=== PATIENT | female | born 1960 | race Caucasian/White ===

== ENCOUNTER 2017-02-07 15:51 | Emergency (ER) | payer OTHER ==
[~2017-02-07] VITALS: Ht 162.6 cm; Wt 72.3 kg
[~2017-02-07 15:51] MED LIST: ACET-1600 PO; ASPI1TAB2 PO; AZEL23SP NS; CETI-158 PO; CHOL200024 PO; DEXL60CA PO; IBUP200C8 PO; LEVO137T2 PO; SERT50TA5 PO; VALA500T PO
[2017-02-07] MEDS ORDERED: SODIUM CHLORIDE 0.9% 1,000ML IVBOLUS ONE (16:30)
[2017-02-07 16:34] LABS: HEMATOCRIT 44.7 % (34.6-47.8); HEMOGLOBIN 14.9 g/dL (11.7-16.4); WHITE BLOOD COUNT 7.7 x10^3/uL (3.4-10)
[2017-02-07 16:48] LABS: ASPARTATE AMINO TRANSFERASE 28 U/L (15-37); BLOOD UREA NITROGEN 14 mg/dL (7-18)
[2017-02-07] MEDS ORDERED: SODIUM CHLORIDE FLUSH 10ML SYR IVF ONE (18:00)
[2017-02-07 18:28] VITALS: BP 147/111
== END 2017-02-07 18:31 | disposition home or self-care (01) ==
LOC: ED 18:25
DX: R42 Dizziness and giddiness (principal); R00.2 Palpitations; E03.9 Hypothyroidism, unspecified; Z85.3 Personal history of malignant neoplasm of breast
CPT/HCPCS: 36415; 71010; 76700; 80053; 81003; 83690; 83735; 84443; 85025; 93005; 99285

== ENCOUNTER → 2017-05-15 | Outpatient (CLI) | payer OTHER ==
[~2017-05-15] MED LIST changes: +ASPI-691 PO; -ASPI1TAB2 PO; -DEXL60CA PO; +DEXL60CA2 PO
== END | disposition home or self-care (01) ==
LOC: ROC 07:28
PROVIDERS: ATTEND Radiology Radiation Oncology
DX: Z12.31 Encounter for screening mammogram for malignant neoplasm of breast (principal); C50.412 Malignant neoplasm of upper-outer quadrant of left female breast; Z92.3 Personal history of irradiation; Z90.12 Acquired absence of left breast and nipple
CPT/HCPCS: 99213; G0463